=== PATIENT | male | born 1935 ===

== ENCOUNTER → 2021-05-29 | Outpatient (CLI) | payer MEDICARE ==
--- NOTE | 2021-05-29 12:24 | RAD ---
INDICATION: Reason: RENAL CANCER / Spl. Instructions: HX OF PARTIAL NEPHRECTOMY / History: COMPARISON: None. TECHNIQUE: Grayscale and color ultrasound images obtained of the bilateral kidneys and bladder. FINDINGS: Right Kidney: 96 mm. Left Kidney: 89 mm. There is some renal cortical thinning. There is prominence of the left greater than right renal pelvis with distention of the pelvis and devin yces Bladder: 51 cc prevoid IMPRESSION: * Mild prominence of the renal pelvis left greater than right could be from mild hydronephrosis. * There are some limitation for evaluation of an underlying mass secondary to overlying structures o bscuring. If there is clinical concern for a renal mass either CT or MRI renal protocol could further assess. Electronically signed by: Roderick Diehl MD (05/29/2021 12:22 PM) [id number]
== END ==
LOC: US 09:40
PROVIDERS: ATTEND Urology
DX: C64.9 Malignant neoplasm of unspecified kidney, except renal pelvis (principal)
CPT/HCPCS: 76770